=== PATIENT | male | born 1955 | race African-American/Black ===

== ENCOUNTER 2019-06-11 14:18 | Outpatient (CLI) | payer BC ==
[2019-06-11 14:52] LABS: Bilirubin Negative (Negative); Blood, Urine Trace (Negative); Clarity Clear (Clear); Glucose, Urine (Dipstick) Negative (Negative); Leukocyte Negative (Negative); Nitrite Negative (Negative); Protein, Urine (Dipstick) Negative (Neg-Trace); Urobilinogen 0.2 mg/dL (Less than 2)
[2019-06-11 14:53] LABS: Anion Gap 12 mmol/L (10-20); BUN (Urea Nitrogen) 12 mg/dL (8.4-25.7); Calc. Creatinine Clearance 0 mL/min (70-130); Calcium 9.2 mg/dL (7.8-10.44); Carbon Dioxide 27 mmol/L (23-31); Chloride 104 mmol/L (98-107); Estimated GFR-MDRD 60; Glucose 104 mg/dL (80-115); Sodium 139 mmol/L (136-145)
[2019-06-11 15:07] LABS: RBC/HPF 0-3 HPF (0-3); WBC/HPF None Seen HPF (0-3)
[2019-06-11 15:08] LABS: Bacteria/HPF Rare-Few HPF (None Seen); Squamous Epithelial None Seen HPF (0-3)
--- NOTE | 2019-06-11 15:08 | CT ---
CT STONE PROTOCOL: HISTORY:Hematuria COMPARISON: 03/29/2016 DISCLAIMER: Absence of oral and IV contrast reduces the sensitivity of the exam particularly for the evaluation of solid organs and bowel. FINDINGS: The lung bases are clear. No free air or free fluid is seen in the abdomen or pelvis. No calcified ga llstones are noted. There are calcified granulomas in the liver. A normal-appearing appendix is seen. There are vascular calcifications without evidence of aneurysmal dilatation of the abdominal aorta. 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 No calculi are noted in the kidneys, ureters or the urinary bladder. No hydroureteronephrosis is seen on either side. The prostate is enlarged. IMPRESSION: No CT evidence of urinary tract calculi/obstruction.
== END 2019-06-11 14:19 | disposition home or self-care (01) ==
LOC: SCSCT 14:18
PROVIDERS: ATTEND Urology
DX: Z12.5 Encounter for screening for malignant neoplasm of prostate (principal); N18.9 Chronic kidney disease, unspecified; R31.9 Hematuria, unspecified; R35.0 Frequency of micturition; Z87.448 Personal history of other diseases of urinary system
CPT/HCPCS: 36415; 74176; 80048; 81001; 87086; 88121; G0103

== ENCOUNTER 2020-03-17 07:27 | Outpatient (CLI) | payer BC, OTHER ==
[2020-03-17 16:50] LABS: #Basophils 0.1 thou/uL (0.0-0.2); #Eosinphils 0.1 thou/uL (0.0-0.7); #Lymphocytes 2.2 thou/uL (1.20-3.40); #Monocytes 0.5 thou/uL (0.11-0.59); #Neutrophils 3.8 thou/uL (1.40-6.50); %Basophils 1.3 % (0.0-1.0); %Eosinophils 0.8 % (0.0-10.0); %Lymphocytes 33.3 % (21.0-51.0); %Monocytes 7.3 % (0.0-10.0); %Neutrophils 57.3 % (42.0-75.0); Hemoglobin 13.4 g/dL (14.0-18.0); Mean Corpuscular HGB CONC 32.5 g/dL (32.0-36.0); Mean Corpuscular Hemoglobin 31.7 pg (27.0-31.0); Mean Corpuscular Volume 97.7 fL (78.0-98.0); Mean Platelet Volume 10.4 fL (7.4-10.4); Platelet Count 172 thou/uL (130-400); RBC Distribution Width 11.7 % (11.5-14.5); Red Blood Cell (RBC) Count 4.24 mill/uL (4.70-6.10); White Blood Cell (WBC) Count 6.6 thou/uL (4.8-10.8)
[2020-03-17 17:14] LABS: Anion Gap 11 mmol/L (10-20); BUN (Urea Nitrogen) 10 mg/dL (8.4-25.7); Calc. Creatinine Clearance 0 mL/min (70-130); Calcium 8.7 mg/dL (7.8-10.44); Carbon Dioxide 25 mmol/L (23-31); Chloride 107 mmol/L (98-107); Estimated GFR-MDRD 62; Glucose 102 mg/dL (80-115); Potassium 4.4 mmol/L (3.5-5.1); Sodium 139 mmol/L (136-145)
== END 2020-03-17 07:28 | disposition home or self-care (01) ==
LOC: LABBT 07:27
PROVIDERS: ATTEND Orthopaedic Surgery
DX: Z01.812 Encounter for preprocedural laboratory examination (principal); Z11.59 Encounter for screening for other viral diseases; S83.207A Unspecified tear of unspecified meniscus, current injury, left knee, initial encounter
CPT/HCPCS: 80048; 85025; 87635; 93005; 93010; U0003

== ENCOUNTER 2020-03-22 08:51 | Day surgery (SDC) | payer BC ==
[2020-03-22] MEDS ORDERED: PROPOFOL 20 ML ONE (09:27)
[2020-03-22] MEDS ORDERED: Fentanyl 100 MCG/2 ML VIAL ONE (10:19)
[2020-03-22] MEDS ORDERED: Lidocaine 1% PF 5 ML VIAL ONE (10:30)
[2020-03-22] MEDS ORDERED: PROPOFOL 200 MG/20 ML VIAL ONE (10:30)
[2020-03-22] MEDS ORDERED: Ondansetron PF 4 MG/2 ML Vial ONE (11:21)
[2020-03-22] MEDS ORDERED: HYDROcodone/Acetaminophen 5/325 mg Tablet ONE (11:38)
--- NOTE | 2020-03-22 19:32 | OP ---
DATE OF PROCEDURE: 03/22/2020 PREOPERATIVE DIAGNOSIS: Left knee posterior horn medial meniscus tear. POSTOPERATIVE DIAGNOSES: 1. Left knee posterior horn medial meniscus tear. 2. Grade 4 lesion lateral femoral condyle that was 1 cm medial-lateral width and greater than 2 cm anterior to posterior. 3. Grade 4 changes on the central trochlea. PROCEDURE PERFORMED: Knee arthroscopy with partial medial meniscectomy. CLOTHING ROOM SUPERVISOR: None. ESTIMATED BLOOD LOSS: Minimal. COMPLICATIONS: None. ANESTHESIA: He did have a general anesthetic as well as a local knee block. DISPOSITION: He went to recovery room in stable condition. INDICATIONS: This is a 64-year-old male, who has been having problems with pain, catching, and swelling in the knee. He was found to have a large posterior horn medial meniscus tear and at this time wished to have surgery on this. DESCRIPTION OF PROCEDURE: After all appropriate consent forms were explained and signed, he was taken back to the operative room and at this time was given general anesthetic. Once the level of anesthesia was appropriate, a tourniquet was placed onto the left thigh and the left lower extremity was prepped and draped in standard surgical fashion. The limb was then exsanguinated, and tourniquet was taken up to 300 mmHg. Inferolateral portal was established. Scope was placed into the knee joint. Needle localization technique was then used to make a medial working portal. Diagnostic arthroscopy commenced in the notch. The ACL and PCL were probed and found to be intact. The medial compartment showed to be good cartilage on the femur and tibia. There was a complex tear of the posterior horn of the medial meniscus including a flap component. Then, a partial meniscectomy was performed using meniscal biter and shaver. We turned our attention to the lateral compartment, and the tibia and the lateral meniscus were found to be in excellent condition, but there was a full-thickness chondral lesion on the lateral femoral condyle, which was measured to be right at a centimeter medial-lateral width and approximately 2 cm from anterior to posterior. At this time, we then swept through the gutters, finding no loose bodies. We then evaluated the patellofemoral joint, which showed good patellar cartilage, but significant cartilage loss in the trochlea. Once this was done, we then turned our attention to looking in the backside of the knee including the posterior medial and posterolateral compartments. No loose bodies were noted. I went through the knee one more time making sure there were no loose bodies and once we were confirmed that there were none, we removed the scope, drained the knee and closed these portal with simple nylon stitch. Bulky sterile dressing was then applied, and tourniquet was let down. Toes pinked up nicely. The patient was awakened, taken to recovery room in stable condition. All counts were correct at the end of the case, and he did receive preoperative IV antibiotics. Job ID: [id number]
== END 2020-03-22 13:30 | disposition home or self-care (01) ==
LOC: SDC 08:51
PROVIDERS: ATTEND Orthopaedic Surgery
PROC: 0SBD4ZZ Excision of Left Knee Joint, Percutaneous Endoscopic Approach (ICD-10-PCS; principal; 2020-03-22)
DX: S83.232A Complex tear of medial meniscus, current injury, left knee, initial encounter (principal); M25.862 Other specified joint disorders, left knee; M17.12 Unilateral primary osteoarthritis, left knee; M54.10 Radiculopathy, site unspecified; I12.9 Hypertensive chronic kidney disease with stage 1 through stage 4 chronic kidney disease, or unspecified chronic kidney disease; N18.9 Chronic kidney disease, unspecified; E78.5 Hyperlipidemia, unspecified; N52.9 Male erectile dysfunction, unspecified; Z79.899 Other long term (current) drug therapy; X58.XXXA Exposure to other specified factors, initial encounter
CPT/HCPCS: J0690; J2001; J2405; J2704; J3010